=== PATIENT | female | born 2000 | race Caucasian/White ===

== ENCOUNTER → 2023-10-10 11:00 | Outpatient (BNV) | payer OTHER, SELFPAY | PROVIDERS: Visit Provider Psychiatry & Neurology Psychiatry | DX: F32.A Depression, unspecified (principal); F41.8 Other specified anxiety disorders; F90.8 Attention-deficit hyperactivity disorder, other type; R48.0 Dyslexia and alexia | CPT/HCPCS: 90792; 99213 ==

== ENCOUNTER 2023-10-17 10:45 | Outpatient (RCR) | payer OTHER, SELFPAY ==
[2023-10-03 12:12] VITALS: BP 99/64; PULSE 53; TEMP 36.8
--- NOTE | 2023-10-03 12:43 | HO.PS.ADMBH ---
HPI Date of Service: 10/03/23 Chief Complaint: depression,anxiety Sources of Information: patient interviewed, chart reviewed and crisis/core team assessment reviewed HPI Narrative: Patient is a 23 year old female with only recent psychiatric history who was referred to [facility] following an in-home crisis evaluation. Her parents reached out to her primary care doctor due to their concerns for her mental wellbeing, primary care doctor requested the crisis eval. She reports being hospitalized in [place] back in May for a brief psychotic episode precipitated by a single exposure to ayahuasca 2 months prior. She reports participating in an [place] [employer] in March which set off a constellation of psychotic symptoms, delusional thoughts and visual and auditory hallucinations of which she remained under the influence of through the summer until being admitted to hospital in May. She reports that she did not initially appreciate that she was hallucinating, and instead accepted the aberrent perceptions/distortions to be an altered reality she had awakened to, and had presumed this experience to be part of the enlightenment she expected to gain from the ayahuasca. In the hospital she was started on Abilify which initially caused some akithisia, but eventually helped clear the psychosis and perceptual disturbances, however she continued to feel low and depression and SI evolved. She was discharged on 10 mg of Abilify in June and returned home to the where she remained on the Abilify until a month ago. She denies any complications or re-emergence of symptoms since stopping the ABilify. Her anxiety modestly improved, however her depression remains unchanged. She continues to have anxiety, no longer about psychotic symptoms returning, but anxiety is now more related to existential concerns and worries about getting back into the routine of life. She is preoccupied with the thought that she has lost something, has been comparing herself to her peers, and feeling she is far behind everyone in terms of where they are in life and their careers. She is having trouble with low motivation and low energy and just not feeling like herself, and feeling removed from her life and where she thinks she should be. She also complains of cognitive problems, my ability to speak and my confidence have been compromised...I feel I have lost some cognitive abilities. Difficulties with articulating her thoughts, both in terms of verbal expression as well as being able to clarify her own thoughts to herself in her mind. I feel I was able to express myself more effectively before the incident . She reports feeling constantly overwhelmed and overstimulated by everything which has significantly impacted her ability to function on a daily basis. She shares feelings of guilt and shame at choosing to use ayahuasca and blaming herself for the subsequent toll it has taken on her. She is particularly frustrated that I'm not even the type of person who uses any substances cites healthy habits and being fit and active, and really regrets not investigating the use of ayahuasca beforehand and just blindly trusting her yoga sports fitness and wellness director for encouraging her to participate in the event. She shares considerable regret, shame and embarrassment about deciding to use ayahuasca and subsequent struggles, and now feeling she is behind/lost time and not living up to potential. She reports her mood currently as pretty okay although generally her mood runs low and improves when distracted and keping her mind off of stressors and intrapsychic conflicts and concerns. She rates her depression severity at 6 out of 10 in severity. Cognitive anxiety rated at a 7 out of 10 in severity and somatic anxiety at a 4 or 5 out of 10. Denies any irritability or anger issues, though Energy is low, appetite recovering, sleep intact. She endorses some concerns about whether she will recover her losses, anticipatory anxiety but denies hopelessness or SI. No thoughts of harming self or others. Past Psychiatric History: IPLOC x 1: 05/2023 in [facility] Spent 1 week at a recovery center prior to hospital admission Prior to ayahuasca use in 03/2023, she had no prior psychiatric history. No hx of psychiatric treatment prior to 05/2023 Developmental hx: born premature (at ?weeks gestation), elective c-sec, breastmilk allergy, no other known complications Diagnosed with Dyslexia at age 5, and ADHD at age 6 IEP through 9th grade PCP: Gigi SANCHEZ Previous trials: -stimulants in grade school (briefly, did not tolerate well at the time), -Abilify (May-Aug 2023) hx of developing +akithisia which abated over time -no other psychotropic or antidepressant medication trials CURRENT MEDICATIONS: Lexapro 5 mg daily (due to move to 10 mg soon) [facility] Medical History (Updated 10/09/23 @ 07:09 by Analisa Appiah MD) No known health problems Narrative: Healthy Denies any chornic health conditions Denies hx of med hospitalizations for illness or injury Denies hx of seizures, concussions or TBI Denies surgical hx Nulligravid G0 LMP: almost 4 weeks ago (not been sexually active) Ht: 5'3 Wt: 120 lbs ALL: NKDA Narrative: none Family History: Alcoholism on mother's side Social History: Lives at home in [place] with mom, dad, younger sister (who's currently on break from school) Graduated HS 2017, graduated [employer] in 2021 Substance History: Alcohol use: casual/social use in the past, in moderation, no hx of black-outs or binging. Last use 5 months ago (since incident) Cannabis use: very little, seldomly used in past. Last use 5 months ago Hallucinogen use: psilocybin used on 2 separate occasions about 2 weeks before ayahuasca use (one time) in 03/2023 Denies any other substance use in the past. No nicotine Trauma History: Denies hx of physical, sexual, emotional abuse or neglect. No witnessed DV or violence in the community Diagnostics Vital Signs (24Hr): Vital Signs - 24 hr 10/03/23 12:12 Temperature 98.3 F Pulse Rate 53 Blood Pressure 99/64 Meds/Allergies Meds Narrative: Escitalopram 5 mg daily Allergies Allergies Allergy/AdvReac Type Severity Reaction Status Date / Time No Known Allergies Allergy Verified 10/03/23 11:46 Mental Status Exam Mental Status Exam Narrative: Alert, oriented, in no acute distress. Casually dressed. Calm, cooperative, forthcoming. Eye?contact. Mood depressed, affect tearful, anxious, inhibited. Normal speech. No evidence of thought disorder. Thought content relevant to stressors. Endorses feelings of hopelessness, helplessness, passive SI. Denies any thoughts of harming self or others. Denies HI on inquiry. No evidence of memo or psychosis. Cognition grossly intact. Sensorium clear. Insight and judgment fair. 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 Code(s): F16.983 - Hallucinogen use, unspecified with hallucinogen persisting perception disorder (flashbacks) (4) Attention deficit hyperactivity disorder (ADHD): Status: Acute Qualifiers: Attention deficit-hyperactivity disorder type: other Qualified Code(s): F90.8 - Attention-deficit hyperactivity disorder, other type Code(s): F90.9 - Attention-deficit hyperactivity disorder, unspecified type Assessment and Plan: diagnosed in childhood (5) Dyslexia: Status: Acute Code(s): R48.0 - Dyslexia and alexia Plan Admit to PHP increase escitalopram to 7.5 mg qd lab slip given for routine lab work continue to monitor as per protocol Patient educated on: diagnosis, medication risk/benefits and substance abuse Informed Consent: understands Reason for continued partial hosp. stay Substantial Risk for: inability to function, rapid decompensation and med/psych decompensation Certification I certify that partial hospital treatment is medically necessary due to the symptoms and problems resulting from the patient's mental illness and the failure to treat the patient at the partial hospital level of care would likely result in the patient requiring inpatient psychiatric care which could not be prevented at a less intensive level of care. Time Spent With Patient Time: Total time managing care of this patient today ___60_ minutes.
--- NOTE | 2023-10-03 12:55 | PC.ADMIT ---
Patient is a 23 year old female who was referred to [facility] by crisis d/t increased sxs of depression with passive SI without a plan or intent. Patient had her first inpatient level of care in May 2023 after an incident that happend in March of 2023. Patient reportedly was living in [place] as an [place] after college and went to a retreat with another woman and tried Ayahuasca, a plant based hallucinogen. She experienced severe psychosis as a result with AH and VH thus needed to be hospitalized and was put on Abilify which was effective. The psychosis resolved and the Abilify was stopped d/t side effects. Patient thoughts appear clear and she denied AH or VH. She feels much guilt over the incident. Patient is alert and oriented x4. Calm and cooperative. Help seeking. Presented with depressed mood and affect. Regarding SI she reports, The past few weeks symptoms of depression has been getting pretty high having suicidal thoughts, the Abilify was intense . Denied plan or intent to kill herself. I gave her a copy of her safety plan if needed. Medications reconciled with patient and patient's pharmacy. Reports taking medications as prescribed. 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
--- NOTE | 2023-10-09 15:29 | HO.PHP ---
Client's case has been opened and reviewed in treatment team.
--- NOTE | 2023-10-09 21:08 | HO.PHPPROGNO ---
Subjective Subjective Date of Service: 10/09/23 Reason For Visit: depression,anxiety Interim History: Patient seen for routine follow-up. No acute issues or concerns. I'm feeling more motivated . Still having some existential anxiety, about the future, and where she sees herself. SHe has some friends she has been spending time going on walks with. SHe still has not divulged events in [facility] past 6 months nor that she is participating in a MH program. 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 She feels she has lost a lot in terms of self-confidence. She appreciates having a schedule and feel the routine provides structure and gives her a sense of purpose. Mood is good, just anxious. Sleeo and appetite and energy are intact. Denies any hopelessness or SI. NO thoughts of using alcohol or substances. Continues on Lexapro 7.5 mg daily. Denies any adverse effects. Medication Compliance: Yes Side effects from medications: No Attending Groups: Yes Review of Systems Acute medical concerns: No Mental Status Exam Mental Status Exam Narrative: Alert, oriented, in no acute distress. Casually dressed. Calm, cooperative, forthcoming. Eye contact. Mood less depressed, affect variable. Normal speech. No evidence of thought disorder. Thought content relevant to stressors. No SI or HI on inquiry. No evidence of memo or psychosis. Cognition grossly intact. Sensorium clear. Insight and judgment fair. Assessment & Plan Assessment & Plan (1) Depressive disorder: Status: Acute Code(s): F32.A - Depression, unspecified (2) Other specified anxiety disorders: Status: Acute Code(s): F41.8 - Other specified anxiety disorders (3) Attention deficit hyperactivity disorder (ADHD): Qualifiers: Attention deficit-hyperactivity disorder type: other Qualified Code(s): F90.8 - Attention-deficit hyperactivity disorder, other type Status: Acute Code(s): F90.9 - Attention-deficit hyperactivity disorder, unspecified type (4) Dyslexia: Status: Acute Code(s): R48.0 - Dyslexia and alexia Plan continue escitalopram 7.5 mg qd will offer lorazepam 0.5 mg (1/2 - 1 tablet) PRN anxiety Patient educated on: diagnosis and medication risk/benefits Informed Consent: understands Certification I certify that partial hospital treatment is medically necessary due to the symptoms and problems resulting from the patient's mental illness and the failure to treat the patient at the partial hospital level of care would likely result in the patient requiring inpatient psychiatric care which could not be prevented at a less intensive level of care. Total time managing care of this patient today ____ minutes. Discharge Plan Discharge Attending provider: Analisa Appiah Medications: New escitalopram oxalate 5 mg tablet 7.5 mg PO DAILY 14 Days Qty: 21 0RF lorazepam 0.5 mg tablet 0.5 mg PO DAILY PRN (Reason: anxiety) Qty: 7 0RF
--- NOTE | 2023-10-17 10:45 | HO.PHP ---
Megan informed the clinician that she spoke with her parents around getting a med provider and she would like a referral now. [facility] staff member was receptive and collected a release of information so that she could place a referral. PHP staff member faxed over a referral to [facility] for med management.
--- NOTE | 2023-10-17 23:48 | HO.PHPPROGNO ---
Subjective Subjective Date of Service: 10/17/23 Reason For Visit: depression,anxiety Interim History: Patient seen for follow-up. She anticipates discharge at the end of the program today. Reportedly her mood is stable. She feels 7.5 mg of Lexapro is the right dose. She denies any adverse effects and is compliant with medications. She currently is feeling a little anxious due to discharge from program scheduled today. She has appreciated having the structure and support. She has used the lorazepam a couple of times in the past 2 weeks and has found it helpful and allows her to be more present in the moment, noting she took it went she went for a walk with a friend and helps her overcome the anxiety to reconnect with friends since having that episode last summer. She denies any helplessness, hopelessness or SI. No thoughts of harming self or others. No alcohol or substance use. She has a therapist and has asked [facility] staff to help her get a psych provider. I will send a month of refills, and defer to new provider to continue medication management. If intake is over 30 days from now, she can call [facility] to request refills while she waits for appointment with new provider. Medication Compliance: Yes Side effects from medications: No Attending Groups: Yes Review of Systems Acute medical concerns: No Mental Status Exam Mental Status Exam Narrative: Alert, oriented, in no acute distress. Casually dressed. Calm, cooperative, forthcoming. Eye contact. Mood euthymic, affect variable, anxious. Normal speech. No evidence of thought disorder. Thought content relevant to stressors. No SI or HI on inquiry. No evidence of memo or psychosis. Cognition grossly intact. Sensorium clear. Insight and judgment fair. Assessment & Plan Assessment & Plan (1) Depressive disorder: Status: Acute Code(s): F32.A - Depression, unspecified (2) Other specified anxiety disorders: Status: Acute Code(s): F41.8 - Other specified anxiety disorders (3) Attention deficit hyperactivity disorder (ADHD): Qualifiers: Attention deficit-hyperactivity disorder type: other Qualified Code(s): F90.8 - Attention-deficit hyperactivity disorder, other type Status: Acute Code(s): F90.9 - Attention-deficit hyperactivity disorder, unspecified type (4) Dyslexia: Status: Acute Code(s): R48.0 - Dyslexia and alexia Plan Discharge from PHP continue regular medications utilize lorazepam 0.5 mg no more than 2x/week to target existential anxiety risks, benefits, side effects reviewed including risk for tolerance/addiction/dependence will defer ongoing medication management to outpatient provider Certification I certify that partial hospital treatment is medically necessary due to the symptoms and problems resulting from the patient's mental illness and the failure to treat the patient at the partial hospital level of care would likely result in the patient requiring inpatient psychiatric care which could not be prevented at a less intensive level of care. Total time managing care of this patient today ____ minutes. Discharge Plan Discharge Attending provider: Analisa Appiah Medications: Continued lorazepam 0.5 mg tablet 0.5 mg PO DAILY PRN (Reason: anxiety) 30 Days Qty: 10 0RF escitalopram oxalate 5 mg tablet 7.5 mg PO DAILY 30 Days Qty: 45 0RF Stand Alone Forms: Patient Portal Discharge page Patient Education: Depression (DC), Depression (DC)
== END 2023-10-17 23:59 | disposition home or self-care (01) ==
LOC: HO.PHPA 10:45
PROVIDERS: Visit Provider Psychiatry & Neurology Psychiatry
DX: F32.A Depression, unspecified (principal); F41.8 Other specified anxiety disorders; F90.8 Attention-deficit hyperactivity disorder, other type; R48.0 Dyslexia and alexia; F16.983 Hallucinogen use, unspecified with hallucinogen persisting perception disorder (flashbacks); Z79.899 Other long term (current) drug therapy
CPT/HCPCS: 90791; 90853